=== PATIENT | female | born 1950 | race African-American/Black ===

== ENCOUNTER 2021-06-02 13:59 | Inpatient (IN) | payer MEDICARE, BC ==
[~2021-06-02] VITALS: Ht 157.5 cm; Wt 37.0 kg
--- NOTE | 2021-06-02 14:12 | PHYS DOC ---
General Adult EDM: Chief Complaint: CONSTIPATION HPI: HPI: Patient is a 70 year old here via EMS with report of constipation and inability to pass a bowel movement for about 1 week. She is passing some flatus. She reports diffuse abdominal bloating. She reports anorexia, with weight loss of over 20 pounds within the last year. Her reports that she eats very little at baseline, she has not had much of an appetite in many years. She reports generalized fatigue, generalized weakness and malaise. She denies bright red blood per rectum. She has a history of some dark stools. She denies chest pain or dyspnea. She denies cough. She has COPD and is chronically dependent on supplemental oxygen, this has been the case for years, no increased oxygen requirement recently. She denies any previous abdominal surgeries. Her daughter has noticed increased abdominal girth over the last several months. The patient has not seen a primary care physician in over 2 years, she has never been referred to a lard refiner reportedly. The patient and her report that she has not had blood work in decades possibly. Her daughter however reports that in 2019 she saw her primary care physician and was diagnosed with vitamin D deficiency. The daughter is not aware of any other known health issues. Review of Systems: Review of Systems: Constitutional: No reported fevers or chills. Weight loss and anorexia reported. Eyes: Chronic vision loss in the right eye, no reported acute changes HENT: Denies nasal congestion or sore throat. [] Respiratory: Denies cough or shortness of breath. [] Cardiovascular: Denies chest pain or edema. [] GI: Denies abdominal pain, reports abdominal fullness and bloating, reports constipation. Denies nausea or vomiting. : Denies dysuria, but she does report inability to fully evacuate her bladder. Musculoskeletal: Denies back pain or joint pain. [] Integument: Denies rash. [] Neurologic: Denies headache, focal weakness or sensory changes. Generalized weakness and malaise reported. Psychiatric: Denies depression or anxiety. [] Heart Score: C/O Chest Pain: No Risk Factors: Risk Factors: DM, Current or recent (<one month) smoker, HTN, HLP, family history of CAD, obesity. Risk Scores: Score 0 - 3: 2.5% MACE over next 6 weeks - Discharge Home Score 4 - 6: 20.3% MACE over next 6 weeks - Admit for Clinical Observation Score 7 - 10: 72.7% MACE over next 6 weeks - Early Invasive Strategies Physical Exam: PE: Constitutional: She is frail, very thin, malnourished appearing, cachectic, chronically ill-appearing. HENT: Normocephalic, atraumatic, oropharynx is patent and clear, mucous membranes tacky Eyes: Opacity of the right cornea. No scleral icterus obviously noted. Conjunctive are pale Neck: Normal range of motion, no tenderness, supple, no stridor. Trachea is midline Cardiovascular:Heart rate regular rhythm, +2 radial and +2 dorsalis pedis pulses bilaterally Lungs & Thorax: Bilateral breath sounds clear to auscultation [] Abdomen: Abdomen is mildly to moderately distended, marked hepatomegaly is palpated. Hypoactive bowel sounds noted. No palpable pulsatile mass. No palpable tenderness. Skin: Warm, dry, no erythema, no rash. Poor skin turgor. Back: No tenderness, no CVA tenderness. [] Extremities: No tenderness, no cyanosis, no clubbing, ROM intact, no edema. No calf tenderness. No limb deformity. Neurologic: She is awake, alert, oriented x3, moves all 4 extremities equally, speech is slow but clear, no facial asymmetry. Psychologic: Affect is flat. [] EKG: EKG: [] Radiology/Procedures: Radiology/Procedures: IMAGING REPORT Signed PATIENT: ELENA VENTURA ACCOUNT: [id number] : 1950 LOCATION: ER AGE: 70 SEX: F EXAM STATUS: REG ER ORD. PHYSICIAN: OMAIRA ANTOINE DO REASON: abdominal bloating, no bowel movement x 1 week PROCEDURE: CT ABD PELV W/ IV CONTRST ONLY EXAM: Abdomen and pelvis CT with intravenous contrast. HISTORY: Bloating. No bowel movement. TECHNIQUE: Computed tomographic images of the abdomen and pelvis were obtained following the administration of intravenous contrast. Multiplanar reformatting was performed. *One or more of the following individualized dose reduction techniques were utilized for this examination: 1. Automated exposure control. 2. Adjustment of the mA and/or kV according to patient size. 3. Use of iterative reconstruction technique. COMPARISON: None. FINDINGS: Evaluation of the lower thorax demonstrates a 1.1 cm groundglass opacity within the posterior right lower lobe likely due to atelectasis or infiltrate. The superimposed on emphysema and chronic interstitial changes. There is left lower lobe interstitial infiltrate or chronic interstitial changes. There is no pleural effusion. The liver is enlarged secondary to multiple heterogeneous predominantly peripheral enhancing masses. The largest of these measures approximately 12 cm. The gallbladder is contracted or absent. The stomach, pancreas, spleen and adrenal glands are unremarkable. No renal lesion is seen. There is no hydroneph rosis. Evaluation for a bowel mass is limited due to motion. There are colonic diverticula. There is wall thickening involving the ascending colon which may be due to peristalsis. There is large amount of stool within the rectal vault likely due to fecal impaction. The bladder is distended. The uterus and adnexal regions are unremarkable. There is heavily calcified atherosclerotic plaque involving the aorta and iliac bifurcation. There is small amount of pelvic free fluid. There are degenerative changes involving the spine, primarily at L3-L4 and L4-L5. IMPRESSION: 1. Multiple large heterogeneous predominantly peripheral enhancing mass within the liver measuring up to 12 cm. The multiplicity of these lesions favors hepatic metastatic disease. Correlate for known primary malignancy. 2. Large amount of stool within the rectum, favoring fecal impaction. 3. Circumferential wall thickening involving the ascending colon, possibly due to peristalsis . Evaluation for colonic neoplasia motion. There is colonic dive rticulosis. 4. Suspected left greater than right lower lobe interstitial infiltrate superimposed on emphysema and chronic interstitial changes. There is no consolidated pneumonia. Electronically signed by: Olivia Soto MD (06/02/2021 4:06 PM) [id number] DICTATED and SIGNED BY: OLIVIA SOTO MD DATE: 06/02/21 [id number] 0 Course & Med Decision Making: Course & Med Decision Making Pertinent Labs and Imaging studies reviewed. (See chart for details) I have discussed the findings, differential diagnosis and plan of care with the patient as well as with her and her daughter. She is evidence of significant anemia, heme positive stool, as well as metastatic lesions of her liver. There is possible underlying malignancy in the colon as well. She does have evidence of constipation and fecal impaction. I suspect this might be related not only to dehydration but possibly from colonic mass and mass-effect from what appear to be malignant lesions. I have recommended mission to the hospital for hydration, helpful evacuation of stool, to provide some more co mfort, as well as transfusion. The patient does consent for transfusion. I have ordered 2 units of packed red blood cells to be given. The patient is comfortable with admission. The patient reports that she does not wish to pursue any aggressive measures. She is still a full code at this time. She manifests no evidence of significant distress, hemodynamically stable at this t sony. IV fluids are given. IV Rocephin empirically given for urinary tract infection. Urine culture is pending. She is accepted for admission by Dr. Christy. Nicolas Disclaimer: Nicolas Disclaimer: This electronic medical record was generated, in whole or in part, using a voice recognition dictation system. Departure Departure Impression: Primary Impression: Fecal impaction Additional Impressions: Liver metastases Severe anemia Heme positive stool Cachexia Lactic acidosis Dehydration Failure to thrive in adult Urinary tract infection Disposition: ADMITTED INPATIENT Admitting Physician: JR (Dr. Christy) Condition: GRAVE ELINA,OMAIRA Wharton DO Jun 02, 2021 14:12
[2021-06-02] MEDS ORDERED: IV NORMAL SALINE 1000ML BAG 1,000 ML IV ONE ×3 (14:30→17:45)
[2021-06-02 15:12] LABS: BASO # 0.1 x10^3/uL (0.0-0.2); BASO % 1 % (0-3); EOS % 0 % (0-3); LYMPH # 0.9 x10^3/uL (1.0-4.8); LYMPH % 6 % (24-48); MEAN CORPUSCULAR HEMOGLOBIN 20 pg (25-35); MEAN CORPUSCULAR HGB CONC 31 g/dL (31-37); MEAN CORPUSCULAR VOLUME 66 fL (79-100); MONO # 0.8 x10^3/uL (0.0-1.1); MONO % 5 % (0-9); NEUT # 13.4 x10^3/uL (1.8-7.7); NEUT % 88 % (31-73); PLATELET COUNT 677 x10^3/uL (140-400); RED BLOOD COUNT 2.62 x10^6/uL (3.50-5.40); RED CELL DISTRIBUTION WIDTH 22.3 % (11.5-14.5); WHITE BLOOD COUNT 15.2 x10^3/uL (4.0-11.0)
[2021-06-02 15:15] LABS: HEMATOCRIT 17.3 % (36.0-47.0); HEMOGLOBIN 5.3 g/dL (12.0-15.5)
[2021-06-02 15:23] LABS: CALCIUM 8.7 mg/dL (8.5-10.1); CREATININE 0.8 mg/dL (0.6-1.0); GFR 85.3; POTASSIUM 3.8 mmol/L (3.5-5.1)
[2021-06-02 15:29] LABS: ALBUMIN 2.2 g/dL (3.4-5.0); ALBUMIN/GLOBULIN RATIO 0.4 (1.0-1.7); TOTAL BILIRUBIN 0.5 mg/dL (0.2-1.0); TOTAL PROTEIN 7.2 g/dL (6.4-8.2)
[2021-06-02] MEDS ORDERED: CONTRAST GIVEN. MC PRN (15:45)
[2021-06-02] MEDS ORDERED: IOHEXOL 300 MG/ML 100ML VIAL. IV ONE (15:45)
--- NOTE | 2021-06-02 16:09 | RAD ---
EXAM: Abdomen and pelvis CT with intravenous contrast. HISTORY: Bloating. No bowel movement. TECHNIQUE: Computed tomographic images of the abdomen and pelvis were obtained following the administ ration of intravenous contrast. Multiplanar reformatting was performed. *One or more of the following individualized dose reduction techniques were utilized for this examina tion: 1. Automated exposure control. 2. Adjustment of the mA and/or kV according to patient size. 3. Use of iterative reconstruction technique. COMPARISON: None. FINDINGS: Evaluation of the lower thorax demonstrates a 1.1 cm groundglass opacity within the posteri or right lower lobe likely due to atelectasis or infiltrate. The superimposed on emphysema and chroni c interstitial changes. There is left lower lobe interstitial infiltrate or chronic interstitial silva ges. There is no pleural effusion. The liver is enlarged secondary to multiple heterogeneous predominantly peripheral enhancing masses. The largest of these measures approximately 12 cm. The gallbladder is contracted or absent. The stoma ch, pancreas, spleen and adrenal glands are unremarkable. No renal lesion is seen. There is no hydron ephrosis. Evaluation for a bowel mass is limited due to motion. There are colonic diverticula. There is wall th ickening involving the ascending colon which may be due to peristalsis. There is large amount of stoo l within the rectal vault likely due to fecal impaction. The bladder is distended. The uterus and adn exal regions are unremarkable. There is heavily calcified atherosclerotic plaque involving the aorta and iliac bifurcation. There is small amount of pelvic free fluid. There are degenerative changes inv olving the spine, primarily at L3-L4 and L4-L5. IMPRESSION: 1. Multiple large heterogeneous predominantly peripheral enhancing mass within the liver measuring up to 12 cm. The multiplicity of these lesions favors hepatic metastatic disease. Correlate for known p rimary malignancy. 2. Large amount of stool within the rectum, favoring fecal impaction. 3. Circumferential wall thickening involving the ascending colon, possibly due to peristalsis . Evalu ation for colonic neoplasia motion. There is colonic diverticulosis. 4. Suspected left greater than right lower lobe interstitial infiltrate superimposed on emphysema and chronic interstitial changes. There is no consolidated pneumonia. Electronically signed by: Olivia Thomas MD (06/02/2021 4:06 PM) [id number]
[2021-06-02 16:40] LABS: BILIRUBIN,URINE NEGATIVE (NEG); CLARITY,URINE CLEAR; COLOR,URINE YELLOW; NITRITE,URINE POSITIVE (NEG); PH,URINE 5.5 (<5.0-8.0); PROTEIN,URINE NEGATIVE (NEG-TRACE)
[2021-06-02 16:47] LABS: BACTERIA,URINE MANY /HPF (0-FEW); RBC,URINE 0 /HPF (0-2)
[2021-06-02 16:55] LABS: FECAL OB PT POSITIVE (NEG)
[2021-06-02 17:01] LABS: % BANDS 8 % (0-9); % LYMPHS 10 % (24-48); % MONOS 5 % (0-10); % SEGS 77 % (35-66); ANISOCYTOSIS MOD; HYPOCHROMIA MARKED; MICROCYTOSIS MARKED; PLT ESTIMATE INCREASED (ADEQUATE); POIKILOCYTOSIS SLIGHT; SCHISTOCYTES FEW
[2021-06-02 17:02] LABS: HELMET CELLS OCC; OVALOCYTES FEW; POLYCHROMASIA PRESENT
[2021-06-02] MEDS ORDERED: cefTRIAXone IV Push 1 GM VIAL. IVP ONE (17:45)
[2021-06-02] MEDS ORDERED: ONDANSETRON PF 4 MG/2 ML VIAL. IVP PRN (17:45)
--- NOTE | 2021-06-02 18:33 | HP ---
DATE OF SERVICE: 06/02/2021 ADMIT DATE: 06/02/2021 CHIEF COMPLAINT: Constipation. HISTORY OF PRESENT ILLNESS: The patient is a pleasant 70-year-old female who has colon cancer with mets to the liver. She presented with constipation. While here in the ER, we noticed that her hemoglobin was 5.2. I discussed the case with ER physician. We are going to admit the patient and transfuse her and then I will probably get her home with hospice here in a day or two. PAST MEDICAL HISTORY: Metastatic colon cancer with mets to the liver, debility. ALLERGIES: None. FAMILY HISTORY: Diabetes. SOCIAL HISTORY: She does not drink, smoke or take drugs. She is for 50 years. Her is present, he is very good support for her. MEDICATIONS: Reviewed, please refer to the MRAD. REVIEW OF SYSTEMS: GENERAL: No history of weight change, weakness or fevers. SKIN: No bruising, hair changes or rashes. EYES: No blurred, double or loss of vision. NOSE AND THROAT: No history of nosebleeds, hoarseness or sore throat. HEART: No history of palpitations, chest pain or shortness of breath on exertion. LUNGS: Denies cough, hemoptysis, wheezing or shortness of breath. GASTROINTESTINAL: She complains of constipation and abdominal distention. GENITOURINARY: No history of frequency, urgency, hesitancy or nocturia. NEUROLOGIC: She complains of weakness. PSYCHIATRIC: No history of panic, anxiety or depression. ENDOCRINE: No history of heat or cold intolerance, polyuria or polydipsia. EXTREMITIES: Denies muscle weakness, joint pain, pain on walking or stiffness. PHYSICAL EXAMINATION: VITALS: Within normal limits and are stable. GENERAL: She is very frail and weak. HEENT: Normal cephalic atraumatic, external auditory canals are patent. EYES: Extraocular muscles are intact, pupils are equally round and reactive to light and accommodation. MUSCULOSKELETAL: Well developed, well nourished, good range of motion. ENDOCRINE: No thyromegaly was palpated. LYMPHATICS: No cervical chain or axillary nodes were noted. HEMATOPOIETIC: No bruising. NECK: Supple, no JVD, no thyromegaly was noted. LUNGS: Clear to auscultation in all lung ovalle without rhonchi or wheezing. HEART: RRR, S1, S2 present. Peripheral pulses intact, no obvious murmurs were noted. ABDOMEN: She has a firm, slightly distended abdomen. EXTREMITIES: Her extremities are cachectic. NEUROLOGIC: She is frail and weak. PSYCHIATRIC: She appears depressed. SKIN: No ulcerations or rashes, good skin turgor, no jaundice. VASCULAR: Good capillary refill, neurovascular bundle appears to be intact. LABORATORY DATA: White count 15, hemoglobin 5.3, platelets 677. Electrolytes: Sodium 137, potassium 3.8, chloride 102, bicarbonate 20, BUN 13, creatinine 0.8, glucose 116. Lactic acid 5.7. Stool occult blood was positive. Urinalysis shows small amount of leukocyte esterase and 4 white cells. COVID testing is negative. CT of the abdomen shows hepatic mets and a large amount of stool and probable neoplasm of the colon. ASSESSMENT AND PLAN: Failure to thrive, cachexia, anemia, history of colon cancer with mets, slight urinary tract infection, severe constipation and anemia. The patient will be admitted. We will consult GI. Transfuse 2 units of packed red blood cells, try to get her bowels moving. Home meds. Deep venous thrombosis prophylaxis. Full code. Trend labs. Prognosis appears terminal. Suspect she may qualify for hospice. LEXUS DR: Ida TID: [id number]
[2021-06-02 19:15] VITALS: BP 108/57
[2021-06-02 20:56] VITALS: BP 108/57
[2021-06-02 21:09] VITALS: BP 123/72
[2021-06-02 22:15] VITALS: BP 98/66
[2021-06-02 23:15] VITALS: BP 106/62
[2021-06-02 23:55] VITALS: BP 100/64
[2021-06-03] VITALS (7 sets, daily range): BP systolic 98–113; BP diastolic 66–72
[2021-06-03 00:31] LABS: HEMATOCRIT 22.3 % (36.0-47.0)
[2021-06-03 08:23] LABS: HEMOGLOBIN 7.1 g/dL (12.0-15.5); RED BLOOD COUNT 3.15 x10^6/uL (3.50-5.40); RED CELL DISTRIBUTION WIDTH 27.3 % (11.5-14.5)
[2021-06-03 08:38] LABS: ALBUMIN 1.8 g/dL (3.4-5.0); ALBUMIN/GLOBULIN RATIO 0.4 (1.0-1.7); CREATININE 0.6 mg/dL (0.6-1.0); GFR 118.9; POTASSIUM 3.8 mmol/L (3.5-5.1); TOTAL BILIRUBIN 0.6 mg/dL (0.2-1.0); TOTAL PROTEIN 5.9 g/dL (6.4-8.2)
[2021-06-03] MEDS ORDERED: POLYETHYLENE GLYCOL 3350 17 GM PACKET. PO PRN (09:00)
[2021-06-03] MEDS ORDERED: SENNOSIDES/DOCUSATE 8.6/50MG TABLET. PO PRN (09:00)
--- NOTE | 2021-06-03 09:27 | PDOC ---
[employer] PROGRESS NOTE Date of Service DOS: DATE: 06/03/21 TIME: 08:46 Chief Complaint Chief Complaint A/P: Unintentional weight loss - likely metastatic colon cancer Acute anemia - improved with transfusion Lactic acidosis - likely nutritional, improving Leukocytosis - possibly reactive, no clear infectious signs Vitamin D deficiency - on weekly replacement Emphysema on CT - O2 and nebs prn Abnormal abdominal CT - likely colon malignancy with liver mets. GI consulted. Patient is not sure if she even wants to have a diagnostic procedure. fecal impaction - stool softeners FEN - General diet PPX - SCDs FULL CODE Dispo - Inpatient History of Present Illness History of Present Illness Ms. Mena is a 70-year-old female past medical history of vitamin D deficiency on weekly replacement who comes to ED via EMS complaining of constipation and difficulty passing solid stool for a week. She has tried MiraLAX and magnesium citrate and did have liquid stools over a week ago. She further notes abdominal bloating anorexia weight loss of 20 pounds in the last year with generalized fatigue weakness malaise. She does note dark stools as well has significant ab dominal distention. Her daughter tried to disimpact her at home and give her fleets enema with little success. She has never had a colonoscopy previously and notes no family history of colon breast or prostate or bone cancer. Was found profoundly anemic Hb 5.3 and lactic acid 5.[address] abdomen pelvis with concern for emphysematous lung bases as well as multiple lesions in the liver significant stool in rectal vault and right sided chronic changes concerning for possible malignancy with metastatic disease. 06/03: Hb 7.1 after transfusion. Abdominal distention improved. Passing flatus and a little bit of liquid stool. No CP or SOB. D/w daughters and bedside Vitals/I&O Vitals/I&O: Vital Signs Date Time Temp Pulse Resp B/P (MAP) Pulse Ox O2 Delivery O2 Flow Rate FiO2 06/03/21 07:00 98.2 108 18 99/66 (77) 93 Nasal Cannula 2.0 98.2 I & O 06/02/21 06/02/21 06/03/21 15:00 23:00 07:00 Intake Total 480 ml Balance 480 ml Physical Exam General: Alert, Oriented X3, Cooperative Heart: Regular rate, Normal S1, Normal S2 Lungs: Wheezing Abdomen: Normal bowel sounds, Other (distended, soft) Extremities: No clubbing, No cyanosis Labs Labs: Laboratory Tests Test 06/02/21 15:00 06/02/21 16:20 06/02/21 16:25 06/02/21 16:53 White Blood Count 15.2 x10^3/uL (4.0-11.0) Red Blood Count 2.62 x10^6/uL (3.50-5.40) Hemoglobin 5.3 g/dL (12.0-15.5) Hematocrit 17.3 % (36.0-47.0) Mean Corpuscular Volume 66 fL (79-100) Mean Corpuscular Hemoglobin 20 pg (25-35) Mean Corpuscular Hemoglobin Concent 31 g/dL (31-37) Red Cell Distribution Width 22.3 % (11.5-14.5) Platelet Count 677 x10^3/uL (140-400) Neutrophils (%) (Auto) 88 % (31-73) Lymphocytes (%) (Auto) 6 % (24-48) Monocytes (%) (Auto) 5 % (0-9) Eosinophils (%) (Auto) 0 % (0-3) Basophils (%) (Auto) 1 % (0-3) Neutrophils # (Auto) 13.4 x10^3/uL (1.8-7.7) Lymphocytes # (Auto) 0.9 x10^3/uL (1.0-4.8) Monocytes # (Auto) 0.8 x10^3/uL (0.0-1.1) Eosinophils # (Auto) 0.0 x10^3/uL (0.0-0.7) Basophils # (Auto) 0.1 x10^3/uL (0.0-0.2) Segmented Neutrophils % 77 % (35-66) Band Neutrophils % 8 % (0-9) Lymphocytes % 10 % (24-48) Monocytes % 5 % (0-10) Platelet Estimate Increased (ADEQUATE) Polychromasia Present Hypochromasia Marked Poikilocytosis Slight Anisocytosis Mod Microcytosis Marked Ovalocytes Few Helmet Cells Occ Schistocytes Few Sodium Level 137 mmol/L (136-145) Potassium Level 3.8 mmol/L (3.5-5.1) Chloride Level 102 mmol/L (98-107) Carbon Dioxide Level 20 mmol/L (21-32) Anion Gap 15 (6-14) Blood Urea Nitrogen 13 mg/dL (7-20) Creatinine 0.8 mg/dL (0.6-1.0) Estimated GFR (Cockcroft-Gault) 85.3 BUN/Creatinine Ratio 16 (6-20) Glucose Level 116 mg/dL (70-99) Lactic Acid Level 5.7 mmol/L (0.4-2.0) Calcium Level 8.7 mg/dL (8.5-10.1) Total Bilirubin 0.5 mg/dL (0.2-1.0) Aspartate Amino Transf (AST/SGOT) 127 U/L (15-37) Alanine Aminotransferase (ALT/SGPT) 19 U/L (14-59) Alkaline Phosphatase 430 U/L (46-116) Total Protein 7.2 g/dL (6.4-8.2) Albumin 2.2 g/dL (3.4-5.0) Albumin/Globulin Ratio 0.4 (1.0-1.7) Lipase 78 U/L (73-393) Stool Occult Blood Positive (NEG) Urine Collection Type Unknown Urine Color Yellow Urine Clarity Clear Urine pH 5.5 (<5.0-8.0) Urine Specific [place] 1.020 (1.000-1.030) Urine Protein Negative mg/dL (NEG-TRACE) Urine Glucose (UA) Negative mg/dL (NEG) Urine Ketones (Stick) Negative mg/dL (NEG) Urine Blood Negative (NEG) Urine Nitrite Positive (NEG) Urine Bilirubin Negative (NEG) Urine Urobilinogen Dipstick 1.0 mg/dL (0.2 mg/dL) Urine Leukocyte Esterase Small (NEG) Urine RBC 0 /HPF (0-2) Urine WBC 1-4 /HPF (0-4) Urine Bacteria Many /HPF (0-FEW) SARS-CoV-2 RNA (KATTY) Negative (Negative) SARS-CoV-2 Antigen (Rapid) Negative (NEGATIVE) Test 06/02/21 18:18 06/03/21 00:20 Lactic Acid Level 3.1 mmol/L (0.4-2.0) White Blood Count 14.0 x10^3/uL (4.0-11.0) Red Blood Count 3.15 x10^6/uL (3.50-5.40) Hemoglobin 7.1 g/dL (12.0-15.5) Hematocrit 23.0 % (36.0-47.0) Mean Corpuscular Volume 73 fL (79-100) Mean Corpuscular Hemoglobin 23 pg (25-35) Mean Corpuscular Hemoglobin Concent 31 g/dL (31-37) Red Cell Distribution Width 27.3 % (11.5-14.5) Platelet Count 596 x10^3/uL (140-400) Sodium Level 140 mmol/L (136-145) Potassium Level 3.8 mmol/L (3.5-5.1) Chloride Level 107 mmol/L (98-107) Carbon Dioxide Level 20 mmol/L (21-32) Anion Gap 13 (6-14) Blood Urea Nitrogen 8 mg/dL (7-20) Creatinine 0.6 mg/dL (0.6-1.0) Estimated GFR (Cockcroft-Gault) 118.9 BUN/Creatinine Ratio 13 (6-20) Glucose Level 80 mg/dL (70-99) Calcium Level 8.0 mg/dL (8.5-10.1) Total Bilirubin 0.6 mg/dL (0.2-1.0) Aspartate Amino Transf (AST/SGOT) 126 U/L (15-37) Alanine Aminotransferase (ALT/SGPT) 14 U/L (14-59) Alkaline Phosphatase 377 U/L (46-116) Total Protein 5.9 g/dL (6.4-8.2) Albumin 1.8 g/dL (3.4-5.0) Albumin/Globulin Ratio 0.4 (1.0-1.7) Assessment and Plan Assessmemt and Plan Problems Medical Problems: (1) Cachexia Status: Acute (2) Dehydration Status: Acute (3) Failure to thrive in adult Status: Acute (4) Fecal impaction Status: Acute (5) Heme positive stool Status: Acute (6) Lactic acidosis Status: Acute (7) Liver metastases Status: Acute (8) Severe anemia Status: Acute (9) Urinary tract infection Status: Acute Comment Review of Relevant I have reviewed the following items caleb (where applicable) has been applied. Medications: Current Medications Medications (Trade) Dose Ordered Sig/Rom Route PRN Reason Start Time Stop Time Status Last Admin Dose Admin Sodium Chloride 1,000 ml @ 1,000 mls/hr 1X ONCE IV 06/02/21 14:30 06/02/21 15:41 DC 06/02/21 14:50 Iohexol (Omnipaque 300 Mg/ml) 75 ml 1X ONCE IV 06/02/21 15:45 06/02/21 15:46 DC 06/02/21 15:46 Sodium Chloride 1,000 ml @ 1,000 mls/hr 1X ONCE IV 06/02/21 16:30 06/02/21 17:29 DC 06/02/21 16:29 Sodium Chloride 1,000 ml @ 75 mls/hr 1X ONCE IV 06/02/21 17:45 06/03/21 07:04 DC 06/02/21 17:45 Ceftriaxone Sodium (Rocephin) 1 gm 1X ONCE IVP 06/02/21 17:45 06/02/21 17:46 DC 06/02/21 17:45 Amino Acids/ Electrolytes/ Dextrose 1,000 ml @ 80 mls/hr [id number] IV 06/02/21 21:00 06/03/21 00:00 Justifications for Admission Other Justification KATE HOOKER MD Jun 03, 2021 09:27
[2021-06-03] MEDS ORDERED: BISACODYL 10 MG SUPP.RECT. PR PRN (09:30)
[2021-06-03] MEDS ORDERED: BISACODYL 10 MG SUPP.RECT. PR ONE (09:30)
--- NOTE | 2021-06-03 09:52 | PDOC2 ---
GI CONSULT Date of Service: DATE: 06/03/21 TIME: 09:52 Reason For Consult: colon cancer w/ mets, anemia, constipation HPI: HPI: 70 y/o female admitted through ER. Reports loss of appetite for awhile with some weight loss (not sure how much). Also reports constipation but liquid stool "seeps out." Denies abdominal pain, bleeding, and n/v. Workup in ER noted profound anemia and imaging is concerning for metastatic di sease (see below). Other notes indicate this was discussed w/ pt and family; however, pt says this is new information to her and daughter Dorothy indicates the same. No previous EGD or colonoscopy. She doesn't think she'd be able to "drink all that stuff." Also says that she might want radiation but wouldn't want chemo and isn't sure she'd pursue surgery. No GB, liver, pancreas, or PUD history. Says the only medication she takes is vit D. PMH: PMH: vit d deficiency FH: Family History: No pertinent hx Social History: Smoke: Quit ROS: GEN: Denies fevers, chills, sweats HEENT: Denies blurred vision, sore throat CV: Denies chest pain RESP: Denies shortness of air, cough GI: Per HPI : Denies hematuria, dysuria ENDO: +weight loss NEURO: Denies confusion, dizziness MSK: Denies weakness, joint pain/swelling SKIN: Denies jaundice, pruritus Vitals: Vitals: Vital Signs Date Time Temp Pulse Resp B/P (MAP) Pulse Ox O2 Delivery O2 Flow Rate FiO2 06/03/21 07:00 98.2 108 18 99/66 (77) 93 Nasal Cannula 2.0 98.2 Labs: Labs: Laboratory Tests Test 06/02/21 15:00 06/02/21 16:20 06/02/21 16:25 06/02/21 16:53 White Blood Count 15.2 x10^3/uL (4.0-11.0) Red Blood Count 2.62 x10^6/uL (3.50-5.40) Hemoglobin 5.3 g/dL (12.0-15.5) Hematocrit 17.3 % (36.0-47.0) Mean Corpuscular Volume 66 fL (79-100) Mean Corpuscular Hemoglobin 20 pg (25-35) Mean Corpuscular Hemoglobin Concent 31 g/dL (31-37) Red Cell Distribution Width 22.3 % (11.5-14.5) Platelet Count 677 x10^3/uL (140-400) Neutrophils (%) (Auto) 88 % (31-73) Lymphocytes (%) (Auto) 6 % (24-48) Monocytes (%) (Auto) 5 % (0-9) Eosinophils (%) (Auto) 0 % (0-3) Basophils (%) (Auto) 1 % (0-3) Neutrophils # (Auto) 13.4 x10^3/uL (1.8-7.7) Lymphocytes # (Auto) 0.9 x10^3/uL (1.0-4.8) Monocytes # (Auto) 0.8 x10^3/uL (0.0-1.1) Eosinophils # (Auto) 0.0 x10^3/uL (0.0-0.7) Basophils # (Auto) 0.1 x10^3/uL (0.0-0.2) Segmented Neutrophils % 77 % (35-66) Band Neutrophils % 8 % (0-9) Lymphocytes % 10 % (24-48) Monocytes % 5 % (0-10) Platelet Estimate Increased (ADEQUATE) Polychromasia Present Hypochromasia Marked Poikilocytosis Slight Anisocytosis Mod Microcytosis Marked Ovalocytes Few Helmet Cells Occ Schistocytes Few Sodium Level 137 mmol/L (136-145) Potassium Level 3.8 mmol/L (3.5-5.1) Chloride Level 102 mmol/L (98-107) Carbon Dioxide Level 20 mmol/L (21-32) Anion Gap 15 (6-14) Blood Urea Nitrogen 13 mg/dL (7-20) Creatinine 0.8 mg/dL (0.6-1.0) Estimated GFR (Cockcroft-Gault) 85.3 BUN/Creatinine Ratio 16 (6-20) Glucose Level 116 mg/dL (70-99) Lactic Acid Level 5.7 mmol/L (0.4-2.0) Calcium Level 8.7 mg/dL (8.5-10.1) Total Bilirubin 0.5 mg/dL (0.2-1.0) Aspartate Amino Transf (AST/SGOT) 127 U/L (15-37) Alanine Aminotransferase (ALT/SGPT) 19 U/L (14-59) Alkaline Phosphatase 430 U/L (46-116) Total Protein 7.2 g/dL (6.4-8.2) Albumin 2.2 g/dL (3.4-5.0) Albumin/Globulin Ratio 0.4 (1.0-1.7) Lipase 78 U/L (73-393) Stool Occult Blood Positive (NEG) Urine Collection Type Unknown Urine Color Yellow Urine Clarity Clear Urine pH 5.5 (<5.0-8.0) Urine Specific [place] 1.020 (1.000-1.030) Urine Protein Negative mg/dL (NEG-TRACE) Urine Glucose (UA) Negative mg/dL (NEG) Urine Ketones (Stick) Negative mg/dL (NEG) Urine Blood Negative (NEG) Urine Nitrite Positive (NEG) Urine Bilirubin Negative (NEG) Urine Urobilinogen Dipstick 1.0 mg/dL (0.2 mg/dL) Urine Leukocyte Esterase Small (NEG) Urine RBC 0 /HPF (0-2) Urine WBC 1-4 /HPF (0-4) Urine Bacteria Many /HPF (0-FEW) SARS-CoV-2 RNA (KATTY) Negative (Negative) SARS-CoV-2 Antigen (Rapid) Negative (NEGATIVE) Test 06/02/21 18:18 06/03/21 00:20 Lactic Acid Level 3.1 mmol/L (0.4-2.0) White Blood Count 14.0 x10^3/uL (4.0-11.0) Red Blood Count 3.15 x10^6/uL (3.50-5.40) Hemoglobin 7.1 g/dL (12.0-15.5) Hematocrit 23.0 % (36.0-47.0) Mean Corpuscular Volume 73 fL (79-100) Mean Corpuscular Hemoglobin 23 pg (25-35) Mean Corpuscular Hemoglobin Concent 31 g/dL (31-37) Red Cell Distribution Width 27.3 % (11.5-14.5) Platelet Count 596 x10^3/uL (140-400) Sodium Level 140 mmol/L (136-145) Potassium Level 3.8 mmol/L (3.5-5.1) Chloride Level 107 mmol/L (98-107) Carbon Dioxide Level 20 mmol/L (21-32) Anion Gap 13 (6-14) Blood Urea Nitrogen 8 mg/dL (7-20) Creatinine 0.6 mg/dL (0.6-1.0) Estimated GFR (Cockcroft-Gault) 118.9 BUN/Creatinine Ratio 13 (6-20) Glucose Level 80 mg/dL (70-99) Calcium Level 8.0 mg/dL (8.5-10.1) Total Bilirubin 0.6 mg/dL (0.2-1.0) Aspartate Amino Transf (AST/SGOT) 126 U/L (15-37) Alanine Aminotransferase (ALT/SGPT) 14 U/L (14-59) Alkaline Phosphatase 377 U/L (46-116) Total Protein 5.9 g/dL (6.4-8.2) Albumin 1.8 g/dL (3.4-5.0) Albumin/Globulin Ratio 0.4 (1.0-1.7) Allergies: Coded Allergies: No Known Drug Allergies (Unverified , 06/02/21) Medications: Current Medications Medications (Trade) Dose Ordered Sig/Rom Route PRN Reason Start Time Stop Time Status Last Admin Dose Admin Sodium Chloride 1,000 ml @ 1,000 mls/hr 1X ONCE IV 06/02/21 14:30 06/02/21 15:41 DC 06/02/21 14:50 Iohexol (Omnipaque 300 Mg/ml) 75 ml 1X ONCE IV 06/02/21 15:45 06/02/21 15:46 DC 06/02/21 15:46 Sodium Chloride 1,000 ml @ 1,000 mls/hr 1X ONCE IV 06/02/21 16:30 06/02/21 17:29 DC 06/02/21 16:29 Sodium Chloride 1,000 ml @ 75 mls/hr 1X ONCE IV 06/02/21 17:45 06/03/21 07:04 DC 06/02/21 17:45 Ceftriaxone Sodium (Rocephin) 1 gm 1X ONCE IVP 06/02/21 17:45 06/02/21 17:46 DC 06/02/21 17:45 Amino Acids/ Electrolytes/ Dextrose 1,000 ml @ 80 mls/hr [id number] IV 06/02/21 21:00 06/03/21 00:00 Imaging: Imaging: CT A/P w/ IV contrast FINDINGS: Evaluation of the lower thorax demonstrates a 1.1 cm groundglass opacity within the posterior right lower lobe likely due to atelectasis or infiltrate. The superimposed on emphysema and chronic interstitial changes. There is left lower lobe interstitial infiltrate or chronic interstitial changes. There is no pleural effusion. The liver is enlarged secondary to multiple heterogeneous predominantly peripheral enhancing masses. The largest of these measures approximately 12 cm. The gallbladder is contracted or absent. The stomach, pancreas, spleen and adrenal glands are unremarkable. No renal lesion is seen. There is no hydronephrosis. Evaluation for a bowel mass is limited due to motion. There are colonic diverticula. There is wall thickening involving the ascending colon which may be due to peristalsis. There is large amount of stool within the rectal vault likely due to fecal impaction. The bladder is distended. The uterus and adnexal regions are unremarkable. There is heavily calcified atherosclerotic plaque involving the aorta and iliac bifurcation. There is small amount of pelvic free fluid. There are degenerative changes involving the spine, primarily at L3-L4 and L4-L5. IMPRESSION: 1. Multiple large heterogeneous predominantly peripheral enhancing mass within the liver measuring up to 12 cm. The multiplicity of these lesions favors hepatic metastatic disease. Correlate for known primary malignancy. 2. Large amount of stool within the rectum, favoring fecal impaction. 3. Circumferential wall thickening involving the ascending colon, possibly due to peristalsis . Evaluation for colonic neoplasia motion. There is colonic diverticulosis. 4. Suspected left greater than right lower lobe interstitial infiltrate superimposed on emphysema and chronic interstitial changes. There is no consolidated pneumonia. PE: GEN: cachectic HEENT: Atraumatic, cataract LUNGS: diminished anteriorly, NC 2L HEART: tachycardic ABD: BS+, some distention, non-tender EXTREMITY: No edema SKIN: No rashes, no jaundice NEURO/PSYCH: A & O 3, forgetful A/P: A/P: Decreased appetite, weight loss, change in bowel habits Microcytic anemia (improved w/ transfusion), +Hemoccult, elevated Alk Phos, lactic acidosis, ?UTI Abnormal CT - liver masses concern for metastatic disease, fecal impaction, circumferential wall thickening in ascending colon CRC screen - none Diverticulosis COVID negative -- Discussed w/ pt and daughter CT findings and options for ongoing evaluation - ?liver biopsy for tissue diagnosis. They are undecided and will consider options. Will return w/ Dr. Jacques. MANPREET BERMUDEZ Jun 03, 2021 09:52
[2021-06-03] MEDS: CHOLECALCIFEROL (VITAMIN D3) 5,000 UNIT CAPSULE PO SCH (10:27)
[2021-06-03] MEDS: AA 4.25 %/CALCIUM/LYTES/D5W 1,000 ML IV SCH ×3 (10:28→23:16)
[2021-06-03] MEDS: PSYLLIUM HUSK (SUGAR FREE) 1 PKT PACKET PO SCH (20:33)
[2021-06-03] MEDS: cefTRIAXone IV Push 1 GM VIAL. IVP SCH (20:34)
[2021-06-03] MEDS ORDERED: MAGNESIUM CITRATE 296 ML SOLUTION. PO ONE (22:15)
[2021-06-04] VITALS (12 sets, daily range): BP systolic 88–137; BP diastolic 56–94
[2021-06-04] MEDS: IPRATRPIUM/ALBUTEROL 0.5/2.5MG 3 ML NEBU. NEB SCH ×4 (08:21→20:48)
[2021-06-04] MEDS: CHOLECALCIFEROL (VITAMIN D3) 5,000 UNIT CAPSULE PO SCH (09:00)
[2021-06-04] MEDS: AA 4.25 %/CALCIUM/LYTES/D5W 1,000 ML IV SCH (09:47)
[2021-06-04] MEDS ORDERED: BISACODYL 10 MG SUPP.RECT. PR ONE (10:15)
--- NOTE | 2021-06-04 10:31 | NUR ---
SW following. Discussed with RN, pt from home with , 5L face mask (does not use oxygen at home). GI following. Pt received blood yesterday. SW will continue to follow.
--- NOTE | 2021-06-04 10:48 | PDOC ---
Date of Service: DATE: 06/04/21 TIME: 10:43 Subjective: Subjective: Family present, concerned w/ stool impaction and change in resp status. They are leaning toward no liver biopsy and wanting to take her home when she's stable. Objective: Vital Signs: Vital Signs Date Time Temp Pulse Resp B/P (MAP) Pulse Ox O2 Delivery O2 Flow Rate FiO2 06/04/21 08:25 92 Simple Mask 6.0 06/04/21 07:00 99.3 100 16 98/74 (82) 99.3 Labs: Laboratory Tests Test 06/04/21 06:50 Iron Level 16 ug/dL Total Iron Binding Capacity 226 ug/dL Iron Saturation 7 % PE: GEN: chronically ill, three daughters present LUNGS: some wheezing anteriorly, breathing mask - O2 89% when I visited HEART: mildly tachycardic ABD: quiet, non-tender NEURO/PSYCH: awake and alert, seems more lethargic today A/P: Metastatic liver lesions, possible GI primary source NIKI Resp failure, constipation COVID negative -- CXR, recheck labs, try suppository if able. Goals of care discussion per primary. Justicifation of Admission Dx: Justifications for Admission: Justification of Admission Dx: Yes MANPREET BERMUDEZ Jun 04, 2021 10:48
[2021-06-04 11:03] LABS: HEMATOCRIT 22.5 % (36.0-47.0); RED BLOOD COUNT 3.16 x10^6/uL (3.50-5.40); WHITE BLOOD COUNT 15.2 x10^3/uL (4.0-11.0)
[2021-06-04 11:07] LABS: CALCIUM 8.6 mg/dL (8.5-10.1); CREATININE 0.6 mg/dL (0.6-1.0); GFR 118.9; POTASSIUM 4.6 mmol/L (3.5-5.1)
--- NOTE | 2021-06-04 11:17 | RAD ---
XR CHEST 1V 06/04/2021 Reason: wheezing, decreased O2 sat Comparison: None Technique: Portable upright radiograph the chest Findings: There is architectural distortion is severe emphysema. Interstitial thickening at the right mid perip walter. There is consolidation in the right perihilar region. No definite pleural effusion or pneumotho rax. Cardiomediastinal silhouette is effusion. There is elevation of the right hemidiaphragm. Impression: Changes of severe emphysema. There is consolidation in the right perihilar region and increased inter stitial thickening in the right midlung. Underlying infection or malignancy could be considered. Ches t CT recommended if clinically indicated. Electronically signed by: Martir Garcia (06/04/2021 11:15 AM) [id number]
--- NOTE | 2021-06-04 11:32 | EKG ---
[facility] [address] [place] [address] Test Date: 2021-06-04 Test Time: 11:29:24 Pat Name: ELENA VENTURA Department: Room: 440 1 Gender: F Surveyor Instrument Assistant: ELIEZER : 1950 Requested By: DRU EASTON Order Number: [id number] Reading MD: Jovany Echavarria MD Measurements Intervals [place] Rate: 122 P: 42 VA: 126 QRS: 261 QRSD: 60 T: -23 QT: 358 QTc: 511 Interpretive Statements SINUS TACHYCARDIA POOR R WAVE PROGRESSION LOW VOLTAGE CONSIDER REPEAT EKG Electronically Signed On 06-08-2021 14:12:59 PROJECT DEVELOPMENT LEADER by Jovany Echavarria MD
[2021-06-04] MEDS ORDERED: SODIUM PHOSPHATES 19/7GM 133 ML ENEMA. PR ONE (12:15)
--- NOTE | 2021-06-04 12:36 | NUR ---
called consult to dr campos at this time
[2021-06-04] MEDS: methylPREDNISolone SOD SUCC PF 40 MG/ML VIAL. IV SCH ×2 (13:28→22:18)
[2021-06-04] MEDS: DOXYCYCLINE HYCLATE 100 MG in IV DEXTROSE 5% 100ML 100 ML IV SCH ×2 (13:29→21:13)
[2021-06-04] MEDS: POLYETHYLENE GLYCOL 3350 17 GM PACKET. PO SCH (17:29)
[2021-06-04] MEDS: PSYLLIUM HUSK (SUGAR FREE) 1 PKT PACKET PO SCH (21:00)
[2021-06-04] MEDS: cefTRIAXone IV Push 1 GM VIAL. IVP SCH (21:12)
[2021-06-05] MEDS: AA 4.25 %/CALCIUM/LYTES/D5W 1,000 ML IV SCH ×2 (00:04→12:21)
[2021-06-05 03:33] VITALS: BP 99/69
[2021-06-05] MEDS: methylPREDNISolone SOD SUCC PF 40 MG/ML VIAL. IV SCH ×2 (05:40→14:00)
[2021-06-05 07:00] VITALS: BP 115/82
[2021-06-05] MEDS: IPRATRPIUM/ALBUTEROL 0.5/2.5MG 3 ML NEBU. NEB SCH ×3 (08:14→15:23)
[2021-06-05] MEDS: DOXYCYCLINE HYCLATE 100 MG in IV DEXTROSE 5% 100ML 100 ML IV SCH (08:24)
[2021-06-05] MEDS: POLYETHYLENE GLYCOL 3350 17 GM PACKET. PO SCH (08:24)
[2021-06-05] MEDS: CHOLECALCIFEROL (VITAMIN D3) 5,000 UNIT CAPSULE PO SCH (08:25)
--- NOTE | 2021-06-05 10:05 | PDOC ---
G I PROGRESS NOTE Subjective Eating a little. Objective Reports of large BM last night. Per Dr. Christy, to pursue hospice. Physical Exam Lungs clear anteriorly. RRR Abdomen soft with hepatomegaly. Review of Relevant I have reviewed the following items caleb (where applicable) has been applied. Labs Laboratory Tests Test 06/04/21 06:50 06/04/21 22:50 White Blood Count 15.2 x10^3/uL (4.0-11.0) Red Blood Count 3.16 x10^6/uL (3.50-5.40) Hemoglobin 7.0 g/dL (12.0-15.5) 9.0 g/dL (12.0-15.5) Hematocrit 22.5 % (36.0-47.0) 28.4 % (36.0-47.0) Mean Corpuscular Volume 71 fL (79-100) Mean Corpuscular Hemoglobin 22 pg (25-35) Mean Corpuscular Hemoglobin Concent 31 g/dL (31-37) Red Cell Distribution Width 27.0 % (11.5-14.5) Platelet Count 623 x10^3/uL (140-400) Sodium Level 139 mmol/L (136-145) Potassium Level 4.6 mmol/L (3.5-5.1) Chloride Level 105 mmol/L (98-107) Carbon Dioxide Level 19 mmol/L (21-32) Anion Gap 15 (6-14) Blood Urea Nitrogen 20 mg/dL (7-20) Creatinine 0.6 mg/dL (0.6-1.0) Estimated GFR (Cockcroft-Gault) 118.9 Glucose Level 99 mg/dL (70-99) Calcium Level 8.6 mg/dL (8.5-10.1) Iron Level 16 ug/dL (50-170) Total Iron Binding Capacity 226 ug/dL (250-450) Iron Saturation 7 % (15-34) Laboratory Tests Test 06/04/21 22:50 Hemoglobin 9.0 g/dL (12.0-15.5) Hematocrit 28.4 % (36.0-47.0) Microbiology 06/02/21 Urine Culture - Final, Complete 06/02/21 Antimicrobic Susceptibility - Final, Complete Vitals/I & O Vital Sign - Last 24 Hours 06/04/21 06/04/21 06/04/21 12/23/21 11:00 11:50 15:00 16:10 Temp 98.8 98.9 98.8 98.9 Pulse 120 122 Resp 16 22 B/P (MAP) 118/91 (100) 116/94 (101) Pulse Ox 93 90 94 O2 Delivery Room Air Simple Mask Room Air Simple Mask O2 Flow Rate 8.0 8.0 06/04/21 06/04/21 06/04/21 06/04/21 17:28 17:45 18:45 19:00 Temp 97.9 97.4 97.8 97.5 97.9 97.4 97.8 97.5 Pulse 123 124 119 113 Resp 28 26 20 20 B/P (MAP) 99/74 97/65 88/60 94/67 (76) Pulse Ox 97 O2 Delivery Nasal Cannula 06/04/21 06/04/21 06/04/21 06/04/21 20:00 20:53 21:02 21:10 Temp 97.8 97.8 97.8 97.8 Pulse 111 111 Resp 18 18 B/P (MAP) 96/57 (70) 96/57 Pulse Ox 98 99 O2 Delivery Mask Simple Mask Simple Mask O2 Flow Rate 8.0 8.0 8.0 06/04/21 06/05/21 06/05/21 06/05/21 22:16 03:33 07:00 08:14 Temp 97.9 97.2 97.5 97.9 97.2 97.5 Pulse 120 112 111 Resp 18 20 28 B/P (MAP) 105/72 99/69 (79) 115/82 (93) Pulse Ox 100 97 96 O2 Delivery Venturi Mask Venturi Mask Simple Mask O2 Flow Rate 8.0 Intake and Output 06/04/21 06/04/21 06/05/21 15:00 23:00 07:00 Intake Total 1100 ml 350 ml 100 ml Balance 1100 ml 350 ml 100 ml Problem List Problems Medical Problems: (1) Cachexia Status: Acute (2) Dehydration Status: Acute (3) Failure to thrive in adult Status: Acute (4) Fecal impaction Status: Acute (5) Heme positive stool Status: Acute (6) Lactic acidosis Status: Acute (7) Liver metastases Status: Acute (8) Severe anemia Status: Acute (9) Urinary tract infection Status: Acute Assessment Metastatic malignancy, source unclear, but GI primary suspect. Large tumor burden unlikely to benefit from treatment. Plan of Care Note Would agree with hospice. Await Heme/Onc opinion. Off the weekend. Coverage available if needed. Justicifation of Admission Dx: Justifications for Admission: Justification of Admission Dx: Yes WILLEM RICKS MD Jun 05, 2021 10:05
[2021-06-05 11:00] VITALS: BP 111/73
--- NOTE | 2021-06-05 11:18 | SNU/HH DC ---
DISCHARGE ORDERS DISCHARGE INFORMATION: FINAL DIAGNOSIS Problems Medical Problems: (1) Cachexia Status: Acute (2) Dehydration Status: Acute (3) Failure to thrive in adult Status: Acute (4) Fecal impaction Status: Acute (5) Heme positive stool Status: Acute (6) Lactic acidosis Status: Acute (7) Liver metastases Status: Acute (8) Severe anemia Status: Acute (9) Urinary tract infection Status: Acute CONDITION ON DISCHARGE: Stable CODE STATUS: Code Status: Full PENITENTIARY: SNF STAY <30 DAYS: No HOSPICE: HOSPICE: Yes HOSPICE EVAL & TREAT: Yes LTAC: ADMIT TO LTAC: No POST DISCHARGE ORDERS: ACTIVITY ORDERS: Bedrest today DIET AFTER DISCHARGE: ROSSY Marie III DO Jun 05, 2021 11:18
--- NOTE | 2021-06-05 11:22 | PDOC ---
[facility] PROGRESS NOTE Date of Service DOS: DATE: 06/05/21 TIME: 11:22 Chief Complaint Chief Complaint A/P: Unintentional weight loss - likely metastatic colon cancer Acute anemia - improved with transfusion Lactic acidosis - likely nutritional, improving Leukocytosis - possibly reactive, no clear infectious signs Vitamin D deficiency - on weekly replacement Emphysema on CT - O2 and nebs prn Abnormal abdominal CT - likely colon malignancy with liver mets. GI consulted. Patient is not sure if she even wants to have a diagnostic procedure. fecal impaction - stool softeners FEN - General diet PPX - SCDs FULL CODE Dispo - Inpatient History of Present Illness History of Present Illness 06/05/2021 Patient seen and examined Family is present They are requesting hospice We will go ahead and discharge with hospice please see dictation Ms. Mena is a 70-year-old female past medical history of vitamin D deficiency on weekly replacement who comes to ED via EMS complaining of constipation and difficulty passing solid stool for a week. She has tried MiraLAX and magnesium citrate and did have liquid stools over a week ago. She further notes abdominal bloating anorexia weight loss of 20 pounds in the last year with generalized fatigue weakness malaise. She does note dark stools as well has significant abdominal distention. Her daughter tried to disimpact her at home and give her fleets enema with little success. She has never had a colonoscopy previously and notes no family history of colon breast or prostate or bone cancer. Was f ound profoundly anemic Hb 5.3 and lactic acid 5.[address] abdomen pelvis with concern for emphysematous lung bases as well as multiple lesions in the liver significant stool in rectal vault and right sided chronic changes concerning for possible malignancy with metastatic disease. 06/03: Hb 7.1 after transfusion. Abdominal distention improved. Passing flatus and a little bit of liquid stool. No CP or SOB. D/w daughters and bedside Vitals/I&O Vitals/I&O: Vital Signs Date Time Temp Pulse Resp B/P (MAP) Pulse Ox O2 Delivery O2 Flow Rate FiO2 06/05/21 08:14 96 Simple Mask 8.0 06/05/21 07:00 97.5 111 28 115/82 (93) 97.5 I & O 06/04/21 06/04/21 06/05/21 15:00 23:00 07:00 Intake Total 1100 ml 350 ml 100 ml Balance 1100 ml 350 ml 100 ml Physical Exam General: Alert, Oriented X3, Cooperative Heart: Regular rate, Normal S1, Normal S2 Lungs: Wheezing Abdomen: Normal bowel sounds, Other (distended, soft) Extremities: No clubbing, No cyanosis Labs Labs: Laboratory Tests Test 06/04/21 22:50 Hemoglobin 9.0 g/dL (12.0-15.5) Hematocrit 28.4 % (36.0-47.0) Assessment and Plan Assessmemt and Plan Problems Medical Problems: (1) Cachexia Status: Acute (2) Dehydration Status: Acute (3) Failure to thrive in adult Status: Acute (4) Fecal impaction Status: Acute (5) Heme positive stool Status: Acute (6) Lactic acidosis Status: Acute (7) Liver metastases Status: Acute (8) Severe anemia Status: Acute (9) Urinary tract infection Status: Acute Discharge with hospice please see dictation and orders Comment Review of Relevant I have reviewed the following items caleb (where applicable) has been applied. Medications: Current Medications Medications (Trade) Dose Ordered Sig/Rom Route PRN Reason Start Time Stop Time Status Last Admin Dose Admin Methylprednisolone Sodium Succinate (SOLU-Medrol 40MG VIAL) 40 mg Q8HRS IV 06/04/21 14:00 06/05/21 05:40 Sodium Monofluorophosphate (Fleet Adult) 133 ml 1X ONCE TX 06/04/21 12:15 06/04/21 12:16 DC 06/04/21 13:28 Doxycycline Hyclate 100 mg/ Dextrose 100 ml @ 50 mls/hr Q12HR IV 06/04/21 13:00 06/05/21 08:24 Polyethylene Glycol (miraLAX PACKET) 17 gm DAILY PO 06/04/21 17:00 06/05/21 08:24 Justifications for Admission Other Justification ROSSY FISHMAN III DO Jun 05, 2021 11:22
--- NOTE | 2021-06-05 12:01 | DS ---
DATE OF DISCHARGE: 06/05/2021 ADMITTING DIAGNOSES: Colon cancer with mets to the liver, failure to thrive, cachexia, anemia, slight urinary tract infection, severe constipation. DISCHARGE DIAGNOSES: Progression of colon cancer with mets, failure to thrive, cachexia. Suspect her prognosis is less than 6 months. The family has opted for hospice. CONSULTS: GI. PROCEDURES: None. HOSPITAL COURSE: The patient is a pleasant elderly female who has metastatic colon cancer to the liver. She was admitted for UTI, constipation and failure to thrive. Over the past couple of days, she is improved, but is extremely cachectic and weak and clinically seems to qualify for hospice. I suspect her prognosis is just a few months. I discussed the case with the family this morning, they interested in hospice. I gave them 5 choices including [facility], [facility], [facility], [facility] and [facility] They have chosen [facility]. [facility] has been notified, they are going to come out and arrange discharge this afternoon. DISPOSITION: Home with hospice. ACTIVITY: As tolerated. DIET: Hepatic. DISCHARGE MEDICATIONS: Please see the MRAD. Basically, we are going to put her on comfort meds when she gets home and will continue a few of her home meds. TOTAL TIME: [address]: Ida TID: [id number]
--- NOTE | 2021-06-05 17:35 | NUR ---
Discharge Note: GABBIE VENTURA [facility] Discharge instructions and discharge home medications reviewed with Patient and Spouse and a copy given. All questions have been answered and understanding verbalized. Discontinued lines and drains: Peripheral IV intact. Patient discharged to Home with Hospice with Ambulance Personnel via Stretcher. Mariya with [facility] notified of patient discharge. She will meet family at their home.
== END 2021-06-05 17:35 | disposition hospice, home (50) | DRG 374 ==
LOC: ER 13:59 → 4 NORTH 16:35 → 5 SOUTH 06-04 16:37
PROVIDERS: ADMIT Internal Medicine; ATTEND Internal Medicine
PROC: 30233N1 Transfusion of Nonautologous Red Blood Cells into Peripheral Vein, Percutaneous Approach (ICD-10-PCS; principal; 2021-06-02)
DX: C18.9 Malignant neoplasm of colon, unspecified (principal); J96.01 Acute respiratory failure with hypoxia; E43 Unspecified severe protein-calorie malnutrition; C78.7 Secondary malignant neoplasm of liver and intrahepatic bile duct; E87.2 Acidosis; N39.0 Urinary tract infection, site not specified; R64 Cachexia; D50.9 Iron deficiency anemia, unspecified; E55.9 Vitamin D deficiency, unspecified; E86.0 Dehydration; J43.9 Emphysema, unspecified; K56.41 Fecal impaction; K57.30 Diverticulosis of large intestine without perforation or abscess without bleeding; R62.7 Adult failure to thrive; Z20.822 Contact with and (suspected) exposure to COVID-19; Z51.5 Encounter for palliative care; Z83.3 Family history of diabetes mellitus; Z85.038 Personal history of other malignant neoplasm of large intestine; Z99.81 Dependence on supplemental oxygen
CPT/HCPCS: 36415; 36430; 71045; 74177; 80048; 80053; 81001; 82274; 83540; 83550; 83605; 83690; 85007; 85014; 85018; 85025; 85027; 86850; 86900; 86901; 86920; 87077; 87086; 87186; 87426; 87493; 87505; 93005; 94640; 94760; 96360; 96361; J0696; J2920; J3490; J7030; J7060; P9016; Q9967; U0003; U0005; 99285-25; G0378